=== PATIENT | female | born 1950 | race Caucasian/White ===

== ENCOUNTER → 2018-01-10 | Outpatient (CLI) | payer MEDICARE ==
[~2018-01-10] MED LIST: LEVO75TA5 PO; SIMV40TA3 PO
[2018-01-10 13:46] LABS: BASOPHILS # (AUTO) 0.05 x10^3/uL (0-0.1); BASOPHILS % (AUTO) 1 % (0-1); EOSINOPHILS % (AUTO) 1 % (1-7); LYMPHOCYTES # (AUTO) 2.42 x10^3/uL (1-3.4); LYMPHOCYTES % (AUTO) 27 % (22-44); MD NO; MEAN CORPUSCULAR HEMOGLOBIN 32.3 pg (27.0-34.8); MEAN CORPUSCULAR VOLUME 94.9 fL (80-100); MEAN PLATELET VOLUME 7.4 fL (7.4-10.4); MONOCYTES # (AUTO) 0.52 x10^3/uL (0.2-0.8); MONOCYTES % (AUTO) 6 % (2-9); NEUTROPHILS # (AUTO) 5.94 x10^3/uL (1.8-6.8); NEUTROPHILS % (AUTO) 66 % (42-75); PLATELET COUNT 367 x10^3/uL (130-400); RED BLOOD COUNT 4.49 x10^6/uL (3.82-5.3); RED CELL DISTRIBUTION WIDTH 13.1 % (9.6-15.2)
[2018-01-10 13:57] LABS: ANION GAP 6 mmol/L (5-15); CHLORIDE 106 mmol/L (98-107); CREATININE 0.74 mg/dL (0.55-1.02)
== END | disposition home or self-care (01) ==
LOC: STAR 12:24
PROVIDERS: ATTEND Obstetrics & Gynecology Female Pelvic Medicine and Reconstructive Surgery
DX: Z01.818 Encounter for other preprocedural examination (principal); N81.10 Cystocele, unspecified; K46.9 Unspecified abdominal hernia without obstruction or gangrene; N81.6 Rectocele
CPT/HCPCS: 36415; 71046; 80048; 85025; 93005

== ENCOUNTER 2018-01-17 05:34 | Day surgery (SDC) | payer MEDICARE ==
[~2018-01-17] VITALS: Ht 162.6 cm; Wt 68.9 kg
[2018-01-17] MEDS ORDERED: LACTATED RINGERS 1,000 ML IV SCH ×2 (06:09→12:48)
[2018-01-17] MEDS ORDERED: ACETAMINOPHEN 500 MG TABLET PO ONE (06:30)
[2018-01-17] MEDS ORDERED: GABAPENTIN 300 MG CAPSULE PO ONE (06:30)
[2018-01-17] MEDS ORDERED: OXYcodone 5 MG/5 ML ORAL.SOL UDC PO PRN (07:00)
[2018-01-17] MEDS ORDERED: ONDANSETRON ODT 8 MG PO PRN (07:00)
[2018-01-17] MEDS ORDERED: PROMETHAZINE 25 MG SUPP PR PRN (07:00)
[2018-01-17] MEDS ORDERED: PROMETHAZINE 12.5 MG SUPP PR PRN (07:00)
[2018-01-17] MEDS ORDERED: HYDROmorphone 1 MG/ML, 1ML IV PRN (07:00)
[2018-01-17] MEDS ORDERED: FENTANYL PF 100 MCG/2ML IV PRN (07:00)
[2018-01-17] MEDS ORDERED: MORPHINE SULFATE 4 MG/ML, 1ML IVPush PRN (07:00)
[2018-01-17] MEDS ORDERED: LABETALOL 5MG/ML, 20ML IV PRN (07:00)
[2018-01-17] MEDS ORDERED: PROMETHAZINE 25 MG/ML, 1ML IV PRN (07:00)
[2018-01-17] MEDS ORDERED: MEPERIDINE/PF 25MG/0.5ML IVPush PRN (07:00)
[2018-01-17] MEDS ORDERED: PROMETHAZINE 25 MG/ML, 1ML IM PRN ×2 (07:00)
[2018-01-17] MEDS ORDERED: hydrALAzine 20 MG/ML, 1ML IV PRN (07:00)
[2018-01-17] MEDS ORDERED: ONDANSETRON 2MG/ML, 2ML IV PRN (07:00)
[2018-01-17] MEDS ORDERED: FLUORESCEIN SODIUM 500 MG/5 ML ONE (07:05)
[2018-01-17] MEDS ORDERED: EPINEPHRINE 1 MG/ML, 1ML ONE (07:05)
[2018-01-17] MEDS ORDERED: THROMBIN 5,000 UNIT VIAL TP ONE (07:05)
[2018-01-17] MEDS ORDERED: BUPIVACAINE 0.25% ONE (07:05)
[2018-01-17] MEDS ORDERED: NEOMY/POLYMYXIN B GU IRR. 1 ML IRRIG ONE (07:06)
[2018-01-17] MEDS ORDERED: GLYCOPYRROLATE 0.2MG/1ML, 5ML ONE (07:33)
[2018-01-17] MEDS ORDERED: PROPOFOL 10 MG/ML, 20ML ONE (07:33)
[2018-01-17] MEDS ORDERED: KETOROLAC 30 MG/1 ML ONE (07:33)
[2018-01-17] MEDS ORDERED: MIDAZOLAM 1 MG/ML, 5ML ONE (07:33)
[2018-01-17] MEDS ORDERED: ONDANSETRON 2MG/ML, 2ML ONE (07:33)
[2018-01-17] MEDS ORDERED: NEOSTIGMINE 1 MG/ML, 10ML ONE (07:33)
[2018-01-17] MEDS ORDERED: CEFOTETAN 2 GM ONE (07:33)
[2018-01-17] MEDS ORDERED: DEXAMETHASONE 4 MG/ML, 1ML ONE (07:33)
[2018-01-17] MEDS ORDERED: INDIGO CARMINE 0.8%, 5ML ONE (08:57)
[2018-01-17] MEDS ORDERED: METHYLENE BLUE 10 MG/ML 10ML ONE (08:57)
[2018-01-17] MEDS ORDERED: OXYcodone 5 MG/5 ML ORAL.SOL UDC ONE (09:53)
[2018-01-17] MEDS ORDERED: ONDANSETRON 2MG/ML, 2ML IVPush PRN (13:00)
[2018-01-17] MEDS ORDERED: HYDROcodone/APAP 5/325 TABLET PO PRN (13:00)
[2018-01-17] MEDS ORDERED: PROMETHAZINE 25 MG SUPP PR ONE (13:00)
[2018-01-17] MEDS ORDERED: IBUPROFEN 600 MG TABLET PO PRN (13:00)
== END 2018-01-17 15:05 | disposition home or self-care (01) ==
LOC: OUT 05:34
PROVIDERS: ATTEND Obstetrics & Gynecology Female Pelvic Medicine and Reconstructive Surgery
DX: N81.4 Uterovaginal prolapse, unspecified (principal); N39.46 Mixed incontinence; N73.6 Female pelvic peritoneal adhesions (postinfective); N32.81 Overactive bladder; E78.00 Pure hypercholesterolemia, unspecified; Z90.710 Acquired absence of both cervix and uterus; Z98.890 Other specified postprocedural states
CPT/HCPCS: 57260; 57288; 57425; C1771; C1781; J0171; J1100; J1885; J2250; J2405; J2704; J2710; J3010; J3490; J7120; Q9968